=== PATIENT | female | born 1985 | race Two or more races ===

== ENCOUNTER 2021-07-07 14:01 | Emergency (ER) | payer OTHER ==
[~2021-07-07] VITALS: Ht 167.6 cm; Wt 80.7 kg
[2021-07-07 14:10] VITALS: BP 124/68
[2021-07-07] MEDS ORDERED: ONDANSETRON ODT 4 MG TAB PO ONE (14:15)
[2021-07-07 16:20] LABS: Basophils # (auto) 0 10 ^3/uL (0-0.2); Basophils % (auto) 0.3 % (0.0-2.0); Eosinophils # (auto) 0 10 ^3/uL (0-0.8); Hematocrit 45.5 % (36.0-46.0); Lymphocytes # (auto) 0.7 10 ^3/uL (0.4-5.4); Lymphocytes % (auto) 25.1 % (10.0-50.0); Mean Corpuscular Hemoglobin 26.5 pg (28.0-32.0); Mean Corpuscular Volume 80.4 fL (80.0-100.0); Monocytes # (auto) 0.2 10 ^3/uL (0-1.3); Monocytes % (auto) 5.8 % (0.0-12.0); Neutrophils % (auto) 68.8 % (37.0-80.0); Nucleated Red Blood Cells % 0.1 %; Red Blood Cells 5.66 10^6/uL (4.0-5.20); Red Cell Distribution Width 13.5 % (11.8-14.3)
[2021-07-07 17:07] LABS: Albumin 2.8 g/dL (3.4-5.0); Potassium 3.5 mmol/L (3.5-5.1)
[2021-07-07 17:11] LABS: BUN/Creatinine Ratio 3.6; Bilirubin, Total 0.3 mg/dL (0.2-1.0); Total Protein 7.2 g/dL (6.4-8.2)
[2021-07-07 18:56] LABS: CRP High Sensitivity 1.27 mg/dL (< 0.3)
[2021-07-07] MEDS ORDERED: ONDANSETRON HCL 4 MG/2 ML VIAL IV ONE (20:30)
[2021-07-07] MEDS ORDERED: SODIUM CHLORIDE 0.9% 1,000 ML IV ONE (20:30)
== END 2021-07-07 20:47 | disposition left against medical advice (07) ==
LOC: EDBD 14:01 → ER 14:01
DX: U07.1 COVID-19 (principal); R10.13 Epigastric pain; R19.7 Diarrhea, unspecified
CPT/HCPCS: 36415; 80053; 82728; 85025; 86141; 99283; Q0162

== ENCOUNTER 2021-07-10 10:44 | Inpatient (IN) | payer OTHER ==
[~2021-07-10] VITALS: Ht 167.6 cm; Wt 76.0 kg
[2021-07-10] MEDS ORDERED: DexAMETHasone SOD PHOS 10MG/1ML VIAL INJ IV ONE (11:15)
[2021-07-10] MEDS ORDERED: ASCORBIC ACID 500 MG TAB PO ONE (11:15)
[2021-07-10] MEDS ORDERED: DOXYCYCLINE 100MG/250ML 250 ML IV ONE (11:15)
[2021-07-10] MEDS ORDERED: ZINC SULFATE 220mg CAP or TAB PO ONE (11:15)
[2021-07-10] MEDS ORDERED: cefTRIAXone 1GM/50ML D5W 50 ML IV ONE (11:15)
[2021-07-10 11:46] LABS: Basophils # (auto) 0 10 ^3/uL (0-0.2); Basophils % (auto) 0.5 % (0.0-2.0); Eosinophils # (auto) 0 10 ^3/uL (0-0.8); Hematocrit 42.3 % (36.0-46.0); Hemoglobin 14.3 g/dL (12.2-16.2); Lymphocytes # (auto) 0.8 10 ^3/uL (0.4-5.4); Mean Corpuscular Hemoglobin 26.7 pg (28.0-32.0); Mean Corpuscular Hgb Conc. 33.8 g/dL (32.0-36.0); Mean Corpuscular Volume 79.1 fL (80.0-100.0); Monocytes # (auto) 0.5 10 ^3/uL (0-1.3); Monocytes % (auto) 7.4 % (0.0-12.0); Neutrophils % (auto) 81.1 % (37.0-80.0); Red Blood Cells 5.35 10^6/uL (4.0-5.20); Red Cell Distribution Width 13.6 % (11.8-14.3); White Blood Cell 7.4 10^3/uL (4.4-10.8)
[2021-07-10 12:08] LABS: Albumin 2.1 g/dL (3.4-5.0); Calcium 7.5 mg/dL (8.5-10.1); Potassium 3.5 mmol/L (3.5-5.1)
[2021-07-10 12:12] LABS: BUN/Creatinine Ratio 12.3; Bilirubin, Total 0.2 mg/dL (0.2-1.0); Total Protein 5.8 g/dL (6.4-8.2)
[2021-07-10] MEDS ORDERED: MORPHINE SULFATE INJECTION 2 MG/ML SYRG IV PRN (13:30)
[2021-07-10] MEDS ORDERED: NITROGLYCERIN 0.4 MG SL TAB SL PRN (13:30)
[2021-07-10] MEDS ORDERED: PROMETHAZINE HCL 25 MG/ML 1ML IV PRN (13:45)
[2021-07-10] MEDS ORDERED: traMADol HCL 50 MG TAB PO PRN (13:45)
[2021-07-10] MEDS ORDERED: REMDESIVIR PER PHARMACY 0 ML IV SCH (13:45)
[2021-07-10] MEDS ORDERED: DEXTROSE (50%) 50ML SYRG IV PRN (13:45)
[2021-07-10] MEDS ORDERED: ACETAMINOPHEN 500 MG TAB PO PRN (13:45)
[2021-07-10] MEDS ORDERED: TEMAZEPAM 15 MG CAP PO PRN (13:45)
[2021-07-10] MEDS ORDERED: LACTULOSE 20Gm/30ML SOLN PO PRN (13:45)
[2021-07-10] MEDS: ACCU-CHEK COMFORT CURVE STRIP VI SCH ×2 (17:00→21:36)
[2021-07-10 20:00] VITALS: BP 108/70
[2021-07-10 20:45] VITALS: BP 107/67
[2021-07-10] MEDS: ENOXAPARIN SOD 40 MG/0.4 ML SYRINGE SC SCH (21:36)
[2021-07-10 22:00] VITALS: BP 108/70
[2021-07-11 04:50] VITALS: BP 103/60
[2021-07-11 05:59] LABS: Basophils # (auto) 0 10 ^3/uL (0-0.2); Basophils % (auto) 0.1 % (0.0-2.0); Eosinophils # (auto) 0 10 ^3/uL (0-0.8); Hemoglobin 13.1 g/dL (12.2-16.2); Monocytes # (auto) 0.7 10 ^3/uL (0-1.3); Nucleated Red Blood Cells % 0.1 %
[2021-07-11 06:01] LABS: Hematocrit 39.3 % (36.0-46.0); Lymphocytes # (auto) 0.6 10 ^3/uL (0.4-5.4); Lymphocytes % (auto) 10.3 % (10.0-50.0); Mean Corpuscular Hemoglobin 26.3 pg (28.0-32.0); Mean Corpuscular Hgb Conc. 33.3 g/dL (32.0-36.0); Mean Corpuscular Volume 79.2 fL (80.0-100.0); Monocytes % (auto) 11.6 % (0.0-12.0); Neutrophils # (auto) 4.7 10 ^3/uL (1.6-8.6); Red Blood Cells 4.97 10^6/uL (4.0-5.20); Red Cell Distribution Width 13.6 % (11.8-14.3)
[2021-07-11] MEDS: BUDESONIDE (INHALATION) 180 MCG IH IN SCH ×2 (06:38→22:00)
[2021-07-11] MEDS: ALBUTEROL SULF HFA 90MCG INH 200DOSE IN PRN ×2 (06:38→22:00)
[2021-07-11 06:43] LABS: Albumin 2.2 g/dL (3.4-5.0); BUN/Creatinine Ratio 16.3; Bilirubin, Total 0.2 mg/dL (0.2-1.0); Calcium 7.7 mg/dL (8.5-10.1); Total Protein 6.2 g/dL (6.4-8.2)
[2021-07-11] MEDS: ACCU-CHEK COMFORT CURVE STRIP VI SCH ×4 (07:29→22:26)
[2021-07-11 08:24] VITALS: BP 102/54
[2021-07-11] MEDS: cefTRIAXone 1GM/50ML D5W 50 ML IV SCH (09:09)
[2021-07-11] MEDS: DexAMETHasone SOD PHOS 10MG/1ML VIAL INJ IV SCH (09:09)
[2021-07-11] MEDS: ENOXAPARIN SOD 40 MG/0.4 ML SYRINGE SC SCH ×2 (09:10→21:58)
[2021-07-11] MEDS: ASCORBIC ACID 1,000 MG TAB PO SCH (09:10)
[2021-07-11] MEDS: ZINC SULFATE 220mg CAP or TAB PO SCH (09:11)
[2021-07-11] MEDS: CHOLECALCIFEROL (VITD3) 2,000 UNIT CAP/TAB PO SCH (09:11)
[2021-07-11] MEDS: IVERMECTIN 3 MG TAB PO SCH (09:12)
[2021-07-11] MEDS: AZITHROMYCIN 500MG/ 250ML 250 ML IV SCH (10:16)
[2021-07-11 12:36] VITALS: BP 109/69
[2021-07-11] MEDS ORDERED: REMDESIVIR 200 MG in NS 210ml LOADING DOSE ADULT IV ONE (15:00)
[2021-07-11 17:10] VITALS: BP 102/67
[2021-07-11 19:31] LABS: Urine Bacteria NONE SEEN /hpf (None Seen); Urine Blood 1+ /uL (Negative); Urine Specific Gravity 1.008 (1.001-1.035); Urine WBC <1 /hpf (0 - 5)
[2021-07-11 22:03] VITALS: BP 105/67
[2021-07-12 05:00] VITALS: BP 112/72
[2021-07-12] MEDS: ALBUTEROL SULF HFA 90MCG INH 200DOSE IN PRN ×2 (06:37→21:20)
[2021-07-12] MEDS: BUDESONIDE (INHALATION) 180 MCG IH IN SCH ×2 (06:37→21:20)
[2021-07-12 06:53] LABS: Hematocrit 38.9 % (36.0-46.0); Hemoglobin 13.2 g/dL (12.2-16.2); Mean Corpuscular Hemoglobin 27.1 pg (28.0-32.0); Mean Corpuscular Hgb Conc. 33.9 g/dL (32.0-36.0); Mean Corpuscular Volume 79.8 fL (80.0-100.0); Red Blood Cells 4.87 10^6/uL (4.0-5.20); Red Cell Distribution Width 13.5 % (11.8-14.3); White Blood Cell 4.3 10^3/uL (4.4-10.8)
[2021-07-12] MEDS: ACCU-CHEK COMFORT CURVE STRIP VI SCH ×4 (06:58→22:38)
[2021-07-12 07:02] LABS: Basophils % (manual) 0 (0.0-2.0); Blast Cells 0; Eosinophils % (manual) 0 (0-7); Metamyelocytes % 0; Myelocytes % 0; Promyelocytes % 0; Reactive Lymphocytes 0
[2021-07-12 07:17] LABS: Potassium 3.7 mmol/L (3.5-5.1)
[2021-07-12 07:32] LABS: Albumin 2.1 g/dL (3.4-5.0); Bilirubin, Total 0.3 mg/dL (0.2-1.0); CRP High Sensitivity 0.4 mg/dL (< 0.3); Total Protein 6.1 g/dL (6.4-8.2)
[2021-07-12 08:00] VITALS: BP 109/70
[2021-07-12 09:00] VITALS: BP 109/70
[2021-07-12] MEDS: cefTRIAXone 1GM/50ML D5W 50 ML IV SCH (09:30)
[2021-07-12] MEDS: DexAMETHasone SOD PHOS 10MG/1ML VIAL INJ IV SCH (09:30)
[2021-07-12] MEDS: AZITHROMYCIN 500MG/ 250ML 250 ML IV SCH (09:31)
[2021-07-12] MEDS: IVERMECTIN 3 MG TAB PO SCH (09:31)
[2021-07-12] MEDS: ZINC SULFATE 220mg CAP or TAB PO SCH (09:31)
[2021-07-12] MEDS: ENOXAPARIN SOD 40 MG/0.4 ML SYRINGE SC SCH ×2 (09:32→21:33)
[2021-07-12] MEDS: CHOLECALCIFEROL (VITD3) 2,000 UNIT CAP/TAB PO SCH (09:32)
[2021-07-12] MEDS: ASCORBIC ACID 1,000 MG TAB PO SCH (09:32)
[2021-07-12 11:00] LABS: Band Neutrophils % (manual) 1; Lymphocytes % (manual) 31 (10.0-50.0); Monocytes % (manual) 14 (0-12)
[2021-07-12 12:33] VITALS: BP 104/65
[2021-07-12] MEDS: REMDESIVIR 100mg 100 MG in SODIUM CHL 0.9% 230 ML IV SCH (16:01)
[2021-07-12] MEDS ORDERED: ALBUMIN 25% 100 ML IV ONE (16:15)
[2021-07-12] MEDS ORDERED: DOXYCYCLINE 100MG/250ML 250 ML IV ONE (16:15)
[2021-07-12 16:54] VITALS: BP 99/58
[2021-07-12] MEDS: ALBUMIN 25% 100 ML IV SCH (17:27)
[2021-07-12] MEDS: FUROSEMIDE 20 MG/2 ML VIAL IV SCH (19:00)
[2021-07-12] MEDS: DOXYCYCLINE 100MG/250ML 250 ML IV SCH (19:00)
[2021-07-12] MEDS: POTASSIUM CHL 20 Meq TABLET PO SCH (21:33)
[2021-07-12 22:00] VITALS: BP 103/69
[2021-07-13] VITALS (7 sets, daily range): BP systolic 95–106; BP diastolic 53–68
[2021-07-13] MEDS: ALBUMIN 25% 100 ML IV SCH ×2 (00:54→08:06)
[2021-07-13] MEDS: DOXYCYCLINE 100MG/250ML 250 ML IV SCH ×2 (05:24→17:35)
[2021-07-13] MEDS: ALBUTEROL SULF HFA 90MCG INH 200DOSE IN PRN (06:42)
[2021-07-13] MEDS: BUDESONIDE (INHALATION) 180 MCG IH IN SCH ×2 (06:42→21:08)
[2021-07-13] MEDS: FUROSEMIDE 20 MG/2 ML VIAL IV SCH ×2 (06:45→17:35)
[2021-07-13] MEDS: ACCU-CHEK COMFORT CURVE STRIP VI SCH ×4 (06:46→23:00)
[2021-07-13 07:10] LABS: Hematocrit 37.7 % (36.0-46.0); Hemoglobin 12.9 g/dL (12.2-16.2); Mean Corpuscular Hemoglobin 27.1 pg (28.0-32.0); Mean Corpuscular Hgb Conc. 34.2 g/dL (32.0-36.0); Mean Corpuscular Volume 79.4 fL (80.0-100.0); Red Blood Cells 4.75 10^6/uL (4.0-5.20); Red Cell Distribution Width 13.1 % (11.8-14.3); White Blood Cell 5.8 10^3/uL (4.4-10.8)
[2021-07-13 07:23] LABS: Potassium 3.8 mmol/L (3.5-5.1)
[2021-07-13 07:24] LABS: INR 0.99 (0.9-1.15); Partial Thromboplastin Time 28.9 sec (23.6-33.0)
[2021-07-13 07:34] LABS: Albumin 3.3 g/dL (3.4-5.0); BUN/Creatinine Ratio 20.4; Bilirubin, Total 0.4 mg/dL (0.2-1.0); Calcium 8.5 mg/dL (8.5-10.1); Magnesium 2.7 mg/dL (1.6-2.6); Phosphorus 3.2 mg/dL (2.5-4.90); Total Protein 6.6 g/dL (6.4-8.2)
[2021-07-13 08:17] LABS: Basophils % (manual) 0 (0.0-2.0); Blast Cells 0; Eosinophils % (manual) 0 (0-7); Metamyelocytes % 0; Myelocytes % 0; Promyelocytes % 0; Reactive Lymphocytes 0
[2021-07-13] MEDS: DexAMETHasone SOD PHOS 10MG/1ML VIAL INJ IV SCH (09:02)
[2021-07-13] MEDS: ZINC SULFATE 220mg CAP or TAB PO SCH (09:02)
[2021-07-13] MEDS: CHOLECALCIFEROL (VITD3) 2,000 UNIT CAP/TAB PO SCH (09:03)
[2021-07-13] MEDS: IVERMECTIN 3 MG TAB PO SCH (09:03)
[2021-07-13] MEDS: POTASSIUM CHL 20 Meq TABLET PO SCH ×2 (09:03→23:00)
[2021-07-13] MEDS: ASCORBIC ACID 1,000 MG TAB PO SCH (09:03)
[2021-07-13] MEDS: ENOXAPARIN SOD 40 MG/0.4 ML SYRINGE SC SCH ×2 (09:04→23:00)
[2021-07-13 12:16] LABS: Band Neutrophils % (manual) 3; Lymphocytes % (manual) 18 (10.0-50.0); Monocytes % (manual) 17 (0-12)
[2021-07-13] MEDS ORDERED: DEXTROSE (50%) 50ML SYRG IV PRN ×2 (12:30)
[2021-07-13] MEDS: InsuLIN REG 1unit/0.01ml Soln (100units/ml) SC SCH ×3 (12:45→23:01)
[2021-07-13] MEDS: REMDESIVIR 100mg 100 MG in SODIUM CHL 0.9% 230 ML IV SCH (14:57)
[2021-07-13] MEDS ORDERED: ACCU-CHEK COMFORT CURVE STRIP VI SCH (17:00)
[2021-07-13] MEDS ORDERED: InsuLIN REG 1unit/0.01ml Soln (100units/ml) SC SCH (17:00)
[2021-07-14 05:01] VITALS: BP_SYST 101; BP_SYST 146; BP_DIAS 65; BP_DIAS 80
[2021-07-14] MEDS: DOXYCYCLINE 100MG/250ML 250 ML IV SCH ×2 (05:12→17:52)
[2021-07-14] MEDS: ALBUTEROL SULF HFA 90MCG INH 200DOSE IN PRN ×2 (05:59→19:09)
[2021-07-14] MEDS: BUDESONIDE (INHALATION) 180 MCG IH IN SCH ×2 (06:00→19:09)
[2021-07-14 06:25] LABS: INR 1.02 (0.9-1.15); Partial Thromboplastin Time 28.4 sec (23.6-33.0)
[2021-07-14] MEDS: InsuLIN REG 1unit/0.01ml Soln (100units/ml) SC SCH ×4 (06:28→22:24)
[2021-07-14] MEDS: ACCU-CHEK COMFORT CURVE STRIP VI SCH ×4 (06:28→21:26)
[2021-07-14 06:29] LABS: Potassium 3.4 mmol/L (3.5-5.1)
[2021-07-14 06:30] LABS: Hematocrit 40.6 % (36.0-46.0); Hemoglobin 13.5 g/dL (12.2-16.2); Mean Corpuscular Hemoglobin 26.5 pg (28.0-32.0); Mean Corpuscular Hgb Conc. 33.2 g/dL (32.0-36.0); Mean Corpuscular Volume 79.8 fL (80.0-100.0); Red Blood Cells 5.08 10^6/uL (4.0-5.20); Red Cell Distribution Width 13.1 % (11.8-14.3); White Blood Cell 7.4 10^3/uL (4.4-10.8)
[2021-07-14] MEDS: FUROSEMIDE 20 MG/2 ML VIAL IV SCH ×2 (06:30→17:52)
[2021-07-14 06:33] LABS: Basophils % (manual) 0 (0.0-2.0); Blast Cells 0; Eosinophils % (manual) 0 (0-7); Myelocytes % 0; Promyelocytes % 0; Reactive Lymphocytes 0
[2021-07-14 06:37] LABS: Albumin 3.4 g/dL (3.4-5.0); Bilirubin, Total 0.4 mg/dL (0.2-1.0); Calcium 8.8 mg/dL (8.5-10.1); Magnesium 2.6 mg/dL (1.6-2.6); Phosphorus 3.3 mg/dL (2.5-4.90); Total Protein 6.8 g/dL (6.4-8.2)
[2021-07-14 08:33] LABS: Band Neutrophils % (manual) 4; Lymphocytes % (manual) 33 (10.0-50.0); Metamyelocytes % 2; Monocytes % (manual) 10 (0-12)
[2021-07-14] MEDS: CHOLECALCIFEROL (VITD3) 2,000 UNIT CAP/TAB PO SCH (10:00)
[2021-07-14] MEDS: DexAMETHasone SOD PHOS 10MG/1ML VIAL INJ IV SCH (10:00)
[2021-07-14] MEDS: IVERMECTIN 3 MG TAB PO SCH (10:00)
[2021-07-14] MEDS: ZINC SULFATE 220mg CAP or TAB PO SCH (10:00)
[2021-07-14] MEDS: ASCORBIC ACID 1,000 MG TAB PO SCH (10:00)
[2021-07-14] MEDS: POTASSIUM CHL 20 Meq TABLET PO SCH ×2 (10:00→21:25)
[2021-07-14] MEDS: ENOXAPARIN SOD 40 MG/0.4 ML SYRINGE SC SCH ×2 (10:00→21:26)
[2021-07-14 13:58] LABS: Calcium 8.8 mg/dL (8.5-10.1); Potassium 4.5 mmol/L (3.5-5.1)
[2021-07-14 14:04] LABS: Hepatitis A Ab IgM Negative
[2021-07-14 14:21] LABS: Hepatitis B Core IgM Negative
[2021-07-14 14:27] LABS: Hepatitis C Antibody Negative (Negative)
[2021-07-14] MEDS: REMDESIVIR 100mg 100 MG in SODIUM CHL 0.9% 230 ML IV SCH (16:29)
[2021-07-14 22:00] VITALS: BP 100/67
[2021-07-15] VITALS (7 sets, daily range): BP systolic 94–104; BP diastolic 59–72
[2021-07-15] MEDS: DOXYCYCLINE 100MG/250ML 250 ML IV SCH (05:35)
[2021-07-15] MEDS: FUROSEMIDE 20 MG/2 ML VIAL IV SCH (05:59)
[2021-07-15] MEDS: ACCU-CHEK COMFORT CURVE STRIP VI SCH ×2 (06:12→11:22)
[2021-07-15] MEDS: InsuLIN REG 1unit/0.01ml Soln (100units/ml) SC SCH ×2 (06:13→11:26)
[2021-07-15 06:17] LABS: Basophils # (auto) 0 10 ^3/uL (0-0.2); Eosinophils # (auto) 0 10 ^3/uL (0-0.8); Mean Corpuscular Volume 78.4 fL (80.0-100.0)
[2021-07-15 06:28] LABS: Basophils % (auto) 0.3 % (0.0-2.0); Eosinophils % (auto) 0.3 % (0.0-7.0); Hematocrit 42.8 % (36.0-46.0); Hemoglobin 14.5 g/dL (12.2-16.2); Lymphocytes # (auto) 1.7 10 ^3/uL (0.4-5.4); Mean Corpuscular Hemoglobin 26.6 pg (28.0-32.0); Mean Corpuscular Hgb Conc. 33.9 g/dL (32.0-36.0); Monocytes # (auto) 0.9 10 ^3/uL (0-1.3); Monocytes % (auto) 10.8 % (0.0-12.0); Neutrophils # (auto) 5.4 10 ^3/uL (1.6-8.6); Neutrophils % (auto) 67.6 % (37.0-80.0); Nucleated Red Blood Cells % 0.1 %; Red Blood Cells 5.45 10^6/uL (4.0-5.20); Red Cell Distribution Width 12.7 % (11.8-14.3); White Blood Cell 7.9 10^3/uL (4.4-10.8)
[2021-07-15] MEDS: BUDESONIDE (INHALATION) 180 MCG IH IN SCH (06:47)
[2021-07-15] MEDS: ALBUTEROL SULF HFA 90MCG INH 200DOSE IN PRN (06:47)
[2021-07-15] MEDS: IVERMECTIN 3 MG TAB PO SCH (08:55)
[2021-07-15] MEDS: CHOLECALCIFEROL (VITD3) 2,000 UNIT CAP/TAB PO SCH (08:55)
[2021-07-15] MEDS: ASCORBIC ACID 1,000 MG TAB PO SCH (08:55)
[2021-07-15] MEDS: DexAMETHasone SOD PHOS 10MG/1ML VIAL INJ IV SCH (08:55)
[2021-07-15] MEDS: ENOXAPARIN SOD 40 MG/0.4 ML SYRINGE SC SCH (08:55)
[2021-07-15] MEDS: ZINC SULFATE 220mg CAP or TAB PO SCH (08:55)
[2021-07-15] MEDS ORDERED: CHOL1CAP47 PO (10:09)
[2021-07-15] MEDS ORDERED: ASCO10003 PO (10:09)
[2021-07-15] MEDS ORDERED: DOXY-332 PO (10:09)
[2021-07-15] MEDS ORDERED: ALBUAER3 IN (10:09)
[2021-07-15] MEDS: POTASSIUM CHL 20 Meq TABLET PO SCH (10:25)
[2021-07-15] MEDS ORDERED: REMDESIVIR 100mg 100 MG in SODIUM CHL 0.9% 230 ML IV SCH (13:00)
== END 2021-07-15 16:00 | disposition home or self-care (01) | DRG 177 ==
LOC: ER 10:44 → TELE 13:23 → TELE-EAST 19:45 → TELE-E-ADS 07-14 12:59
PROVIDERS: ADMIT Internal Medicine; ATTEND Internal Medicine Pulmonary Disease
PROC: XW033E5 Introduction of Remdesivir Anti-infective into Peripheral Vein, Percutaneous Approach, New Technology Group 5 (ICD-10-PCS; principal; 2021-07-11)
DX: U07.1 COVID-19 (principal); J96.01 Acute respiratory failure with hypoxia; J12.82 Pneumonia due to coronavirus disease 2019; E43 Unspecified severe protein-calorie malnutrition; R73.03 Prediabetes; R73.9 Hyperglycemia, unspecified; T38.0X5A Adverse effect of glucocorticoids and synthetic analogues, initial encounter; Y92.89 Other specified places as the place of occurrence of the external cause
CPT/HCPCS: 36415; 71045; 80048; 80053; 80074; 81001; 82728; 82962; 83036; 83735; 83880; 84100; 84443; 84484; 85007; 85025; 85027; 85379; 85610; 85730; 86141; 87426; 94640; 96365; 96367; 96375; 99291; G0378; J0696; J1100; J1815; J3490; P9047